=== PATIENT | female | born 1990 | race Caucasian/White ===

== ENCOUNTER 2017-10-01 16:36 | Emergency (ER) | payer MEDICAID ==
--- NOTE | 2017-10-01 17:52 | Emergency Department Record ---
Anxiety - General Chief Complaint: Anxiety Stated Complaint: ANXIETY Time Seen by Provider: 10/01/17 17:42 Source: Patient, RN notes reviewed Mode of Arrival: Ambulatory - History of Present Illness Initial Comments: anxiety disorder and she is been having panic attacks and SOB and she has had a trigger with her family and has been upset. She takes busparone 40 mg in the am and than 10 mg at 11 am and than 10 mg at 2 am and only allowed 60 mg a day and also she takes wellbutyrin 300mg in the am. PSH removal of thyroid and on levothyroidine. Thyroid cancer. 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 MD Complaint: Heart racing Onset/Timin -: Week(s) Symptoms: Chest pain, Palpitations Place: Home, Work Previous History of Same: No Severity: Mild Quality: Constant, Intermittant Provoking factors: Emotional stress, Work/job stress Improves With: Nothing Worsens With: Nothing Associated symptoms: Chest pain - Related Data Home Medications: Previous Rx's Medication Instructions Recorded Ciprofloxacin HCl [Cipro] 500 mg PO Q12HR #20 tablet 10/01/17 Allergies/Adverse Reactions: Allergies Allergy/AdvReac Type Severity Reaction Status Date / Time amoxicillin trihydrate Allergy Intermediate HIVES Unverified 09/18/17 13:59 [From Augmentin] Penicillins Allergy Intermediate HIVES Unverified 09/18/17 13:59 potassium clavulanate Allergy Intermediate HIVES Unverified 09/18/17 13:59 [From Augmentin] latex Allergy rash and Unverified 09/18/17 13:59 redness on hands sulfamethoxazole Allergy upset Unverified 09/18/17 13:59 [From Bactrim] stomach trimethoprim [From Bactrim] Allergy upset Unverified 09/18/17 13:59 stomach Travel Screening - Travel/Exposure Within Last 30 Days Have you traveled within the last 30 days?: No Past Medical History - SOCIAL HISTORY Smoking Status: Current every day smoker Alcohol Use: Rare Drug Use: None - RESPIRATORY Hx Respiratory Disorders: No - CARDIOVASCULAR Hx Cardio Disorders: No - NEURO Hx Neuro Disorders: No - GI Hx GI Disorders: No - Hx Genitourinary Disorders: No - ENDOCRINE Hx Endocrine Disorders: Yes Hx Thyroid Disease: Yes - MUSCULOSKELETAL Hx Musculoskeletal Disorders: Yes Comment:: scoliosis, sciatica - PSYCH Hx Psych Problems: Yes Hx Anxiety: Yes Comment:: bipolar - HEMATOLOGY/ONCOLOGY Hx Hematology/Oncology Disorders: No Family Medical History Any Significant Family History?: Yes Family Hx Comment (NOT TO BE USED IN PLACE OF ITEMS BELOW): mother - MS, thyroid disease Hx Cancer: Grandparents Hx Heart Disease: Father Physical Exam - General General Appearance: Alert, Oriented x3, Cooperative, No acute distress - Head Head exam: Normal inspection - Eye Eye exam: Normal appearance, PERRL Pupils: Normal accommodation - ENT ENT exam: Normal exam, Mucous membranes moist, Normal external ear exam, Normal orophraynx, TM's normal bilaterally Ear exam: Normal external inspection. negative: External canal tenderness Nasal Exam: Normal inspection. negative: Discharge, Sinus tenderness Mouth exam: Normal external inspection, Tongue normal Teeth exam: Normal inspection. negative: Dental caries Throat exam: Normal inspection. negative: Tonsillar erythema, Tonsillar exudate - Neck Neck exam: Normal inspection, Full ROM. negative: Tenderness - Respiratory Respiratory exam: Normal lung sounds bilaterally. negative: Respiratory distress - Cardiovascular Cardiovascular Exam: Regular rate, Normal rhythm, Normal heart sounds - GI/Abdominal GI/Abdominal exam: Soft, Normal bowel sounds. negative: Tenderness - Rectal Rectal exam: Deferred - exam: Deferred - Extremities Extremities exam: Normal inspection, Full ROM, Normal capillary refill. negative: Tenderness - Back Back exam: Reports: Normal inspection, Full ROM. Denies: Muscle spasm, Rash noted, Tenderness - Neurological Neurological exam: Alert, Normal gait, Oriented X3, Reflexes normal - Psychiatric Psychiatric exam: Normal affect, Normal mood - Skin Skin exam: Dry, Intact, Normal color, Warm Course Vital Signs 10/01/17 17:21 Temperature 99.2 F Pulse Rate [ 105 H [employer] ] Respiratory 20 Rate Blood Pressure 113/72 [Left Arm] Pulse Ox 98 Medical Decision Making - Data Complexity MDM Data: Labs Ordered and/or Reviewed, EKG Ordered and/or Reviewed (no acute changes) - Lab Data Result diagrams: 10/01/17 18:00 10/01/17 18:00 Disposition Clinical Impression: Panic attack UTI (urinary tract infection) Qualifiers: Urinary tract infection type: acute cystitis Hematuria presence: without hematuria Qualified Code(s): N30.00 - Acute cystitis without hematuria Disposition: Home, Self-Care Condition: (1) Good Instructions: Social Anxiety Disorder (ED), Urinary Tract Infection in Women ( ED) Additional Instructions: follow up with family DR in 2 to 8 days take addition buspar 10 mg tonight and than back to her daily dose tomorrow Prescriptions: Ciprofloxacin HCl [Cipro] 500 mg PO Q12HR #20 tablet Forms: Patient Portal Access Time of Disposition: 20:02 Quality - Quality Measures Quality Measures: N/A - Blood Pressure Screening Does Patient Have Any of the Following: No Blood Pressure Classification: Normal BP Reading Systolic Measurement: 115 Diastolic Measurement: 75 Screening for High Blood Pressure: < Normal BP, F/U Not Required > [G8783]
[2017-10-01] MEDS ORDERED: ASPIRIN 81 MG CHEWABLE TABLET PO ONE (17:57)
[2017-10-01 18:19] LABS: HEMATOCRIT 35.5 % (35.0-47.0); MEAN CELL VOLUME 89.2 fl (81-97); MEAN CORPUSCULAR HEMOGLOBIN 27.6 pg (27-33); MEAN PLATELET VOLUME 9.3 fl (7.4-10.4); PLATELET COUNT 402 K/uL (130-400); RED BLOOD COUNT 3.98 M/uL (3.80-5.40); RED CELL DISTRIBUTION WIDTH 15.7 % (11.5-14.5); WHITE BLOOD COUNT W/O DIFF 15.6 K/uL (4.2-12.2)
[2017-10-01 18:33] LABS: BLOOD UREA NITROGEN 11 mg/dL (6-20); CREATININE 0.7 mg/dL (0.5-0.9); EST GLOMERULAR FILTRATION RATE > 60 mL/min
[2017-10-01 18:34] LABS: TOTAL PROTEIN 6.9 g/dL (6.6-8.7)
[2017-10-01 18:36] LABS: GLUCOSE,RANDOM 77 mg/dL (74-109)
[2017-10-01 18:38] LABS: ALB/GLOB RATIO 1.5 (1.1-1.8); ALBUMIN 4.1 g/dL (4.0-5.0); ALT/SGPT 65 U/L (<33); AST/SGOT 20 U/L (10.0-35.0)
[2017-10-01 18:39] LABS: ALKALINE PHOSPHATASE 90 U/L (35-104)
[2017-10-01 18:41] LABS: CKMB 2.6 ng/mL (<3.77)
[2017-10-01 18:49] LABS: THYROID STIMULATING HORMONE 2.73 uIU/mL (0.270-4.20)
[2017-10-01 19:40] LABS: URINE APPEARANCE CLEAR; URINE BILIRUBIN SMALL (NEGATIVE); URINE BLOOD NEGATIVE (NEGATIVE); URINE COLOR YELLOW; URINE GLUCOSE (UA) NEGATIVE (NEGATIVE); URINE KETONE NEGATIVE (NEGATIVE); URINE LEUKOCYTE ESTERASE TRACE (NEGATIVE); URINE NITRITE POSITIVE (NEGATIVE); URINE PROTEIN NEGATIVE (NEGATIVE); URINE UROBILINOGEN 0.2 E.U./dL (0.20 - 1.00)
[2017-10-01 19:46] LABS: URINE BACTERIA 1+; URINE RBC 0 - 2 (NONE SEEN)
== END 2017-10-01 20:26 | disposition home or self-care (01) ==
LOC: ER 16:36
DX: N30.00 Acute cystitis without hematuria (principal); R07.9 Chest pain, unspecified; R06.02 Shortness of breath; F43.0 Acute stress reaction; F17.210 Nicotine dependence, cigarettes, uncomplicated
CPT/HCPCS: 80053; 81001; 82553; 84443; 84484; 85027; 85730; 93005; 93010; 99284

== ENCOUNTER 2019-02-19 20:30 | Emergency (ER) | payer MEDICAID ==
[2019-02-19] MEDS ORDERED: CLONIDINE HCL 0.1 MG TABLET PO ONE (21:20)
[2019-02-19] MEDS ORDERED: 0.9 % SODIUM CHLORIDE 1,000 ML BAG IV ONE (21:20)
--- NOTE | 2019-02-19 21:21 | Emergency Department Record ---
Anxiety - General Chief Complaint: Anxiety Stated Complaint: FEEL LIKE BODY GOING NUMB/JERRY Time Seen by Provider: 02/19/19 21:08 Source: Patient Mode of Arrival: Ambulatory - History of Present Illness Initial Comments: The patient states she is here for anxiety. She has a long history of anxiety for which she has been on various medications. The past 2 days she has been getting numbness on and off in her arms, legs, face, her heart has been racing "between 112 and 140 per minute," and she is on and off short of breath with chest tightness. She Is [id number] 2 months ago, and sexually active without control. She is a cigarette smoker, and marijuana less so. Her father of a blood clot to his heart at age 45. She personally has never been worked up for FH of clotting disorder, and she denies PE, DVT. She states she has adverse rections to ativan and xanax, but that clonepin helps with her anxiety. She is in the process of moving out of her home with her two children and getting a divorce after 11 years. She also works at 3 a.m. and feels anxious and exhausted. MD Complaint: Anxiety, Heart racing, Shortness of breath Onset/Timin -: Hour(s) Symptoms: Dyspnea, Extremity numbness/tingling Place: Home Quality: Intermittant, Similar to prior episodes - Related Data Home Medications: Home Medications Medication Instructions Recorded Confirmed Last Taken Clomipramine HCl [Anafranil] 75 mg PO DAILY 02/19/19 02/19/19 Unknown Allergies/Adverse Reactions: Allergies Allergy/AdvReac Type Severity Reaction Status Date / Time amoxicillin trihydrate Allergy Intermediate HIVES Verified 02/19/19 20:45 [From Augmentin] Penicillins Allergy Intermediate HIVES Verified 02/19/19 20:45 potassium clavulanate Allergy Intermediate HIVES Verified 02/19/19 20:45 [From Augmentin] latex Allergy rash and Verified 02/19/19 20:45 redness on hands sulfamethoxazole Allergy upset Verified 02/19/19 20:45 [From Bactrim] stomach trimethoprim [From Bactrim] Allergy upset Verified 02/19/19 20:45 stomach Travel Screening - Travel/Exposure Within Last 30 Days Have you traveled within the last 30 days?: No - Travel Symptoms Symptom Screening: None Review of Systems Reviewed: No additional complaints except as noted below Constitutional: Reports: As per HPI. Denies: Chills, Fever, Malaise, Night sweats, Weakness, Weight change Eyes: Reports: As per HPI. Denies: Eye discharge, Eye pain, Photophobia, Vision change ENT: Reports: As per HPI. Denies: Congestion, Dental pain, Ear pain, Epistaxis, Hearing loss, Throat pain Respiratory: Reports: As per HPI. Denies: Cough, Dyspnea, Hemoptysis, Stridor, Wheezes Cardiovascular: Reports: As per HPI. Denies: Arrhythmia, Chest pain, Dyspnea on exertion, Edema, Murmurs, Orthopnea, Palpitations, Paroxysmal nocturnal dyspnea, Rheumatic Fever, Syncope Endocrine: Reports: As per HPI. Denies: Fatigue, Heat or cold intolerance, Polydipsia, Polyuria Gastrointestinal: Reports: As per HPI. Denies: Abdominal pain, Constipation, Diarrhea, Hematemesis, Hematochezia, Melena, Nausea, Vomiting Genitourinary: Reports: As per HPI. Denies: Abnormal menses, Discharge, Dyspareunia, Dysuria, Frequency, Hematuria, Incontinence, Retention, Urgency Musculoskeletal: Reports: As per HPI. Denies: Arthralgia, Back pain, Gout, Joint swelling, Myalgia, Neck pain Skin: Reports: As per HPI. Denies: Bruising, Change in color, Change in hair/nails, Lesions, Pruritus, Rash Neurological: Reports: As per HPI. Denies: Abnormal gait, Confusion, Headache, Numbness, Paresthesias, Seizure, Tingling, Tremors, Vertigo, Weakness Psychiatric: Reports: As per HPI. Denies: Anxiety, Auditory hallucinations, Depression, Homicidal thoughts, Suicidal thoughts, Visual hallucinations Hematological/Lymphatic: Reports: As per HPI. Denies: Anemia, Blood Clots, Easy bleeding, Easy bruising, Swollen glands Past Medical History - SOCIAL HISTORY Smoking Status: Current every day smoker - RESPIRATORY Hx Respiratory Disorders: No - CARDIOVASCULAR Hx Cardio Disorders: No - NEURO Hx Neuro Disorders: No - GI Hx GI Disorders: No - Hx Genitourinary Disorders: No - ENDOCRINE Hx Endocrine Disorders: Yes Hx Thyroid Disease: Yes - MUSCULOSKELETAL Hx Musculoskeletal Disorders: Yes Comment:: scoliosis, sciatica - PSYCH Hx Psych Problems: Yes Hx Anxiety: Yes Comment:: bipolar - HEMATOLOGY/ONCOLOGY Hx Hematology/Oncology Disorders: No Family Medical History Any Significant Family History?: Yes Family Hx Comment (NOT TO BE USED IN PLACE OF ITEMS BELOW): mother - MS, thyroid disease Hx Cancer: Grandparents Hx Heart Disease: Father Physical Exam - General General Appearance: Alert, Oriented x3, Cooperative, Anxious - Head Head exam: Normal inspection - Eye Eye exam: Normal appearance, PERRL, EOMI. negative: Conjunctival injection, Nystagmus Pupils: Normal accommodation - ENT ENT exam: Normal exam, Mucous membranes moist, Normal external ear exam, Normal orophraynx, TM's normal bilaterally Ear exam: Normal external inspection. negative: External canal tenderness Nasal Exam: Normal inspection. negative: Discharge, Sinus tenderness Mouth exam: Normal external inspection, Tongue normal Teeth exam: Normal inspection. negative: Dental caries Throat exam: Normal inspection. negative: Tonsillar erythema, Tonsillar exudate - Neck Neck exam: Normal inspection, Full ROM. negative: Lymphadenopathy, Meningismus, Tenderness - Respiratory Respiratory exam: Normal lung sounds bilaterally. negative: Accessory muscle use, Prolonged expiratory, Rales, Respiratory distress, Rhonchi, Stridor, Wheezes - Cardiovascular Cardiovascular Exam: Normal rhythm, Normal heart sounds, Tachycardia - GI/Abdominal GI/Abdominal exam: Soft, Normal bowel sounds. negative: Tenderness - Rectal Rectal exam: Deferred - exam: Deferred - Extremities Extremities exam: Normal inspection, Full ROM, Normal capillary refill. negative: Calf tenderness, Pedal edema, Tenderness - Back Back exam: Reports: Normal inspection, Full ROM. Denies: Muscle spasm, Rash noted, Tenderness - Neurological Neurological exam: Alert, CN II-XII intact, Normal gait, Oriented X3, Reflexes normal. negative: Motor sensory deficit - Psychiatric Psychiatric exam: Normal affect, Normal mood - Skin Skin exam: Dry, Intact, Normal color, Warm Course Vital Signs 02/19/19 20:37 Temperature 98.4 F Pulse Rate [ 110 H Left] Respiratory 18 Rate Blood Pressure 131/81 [Left Arm] Pulse Ox 98 - Reevaluation(s) Reevaluation #1: Patient is feeling better after clonidine and a liter of fluid. All symptoms resolved, and all results discussed with patient. She has all her questions answered and will follow up with her PCP to adjust her medications. She declined a work note for tonight. 02/19/19 22:43 02/19/19 22:45 Medical Decision Making - Management Options MDM Management: No Additional Work-up Planned - Data Complexity MDM Data: Labs Ordered and/or Reviewed, EKG Ordered and/or Reviewed - Lab Data Result diagrams: 02/19/19 21:39 02/19/19 21:39 - EKG Data -: EKG Interpreted by Me EKG: No Acute Changes, Normal EKG, Unchanged From Previous Disposition Disposition: Discharge Clinical Impression: Anxiety as acute reaction to exceptional stress Disposition: Home, Self-Care Condition: (1) Good Instructions: Social Anxiety Disorder (ED) Additional Instructions: Home with brother. Continue present medications. PCP follow up next week for medication adjustment. Quality - Quality Measures Quality Measures: N/A - Blood Pressure Screening Does Patient Have Any of the Following: No Blood Pressure Classification: Normal BP Reading Systolic Measurement: 101 Diastolic Measurement: 67 Screening for High Blood Pressure: < Normal BP, F/U Not Required > [G8783]
[2019-02-19 21:49] LABS: BASO % 0.8 % (0-6); GRAN % 67.7 % (47-80); HEMATOCRIT 38.3 % (35.0-47.0); HEMOGLOBIN 12.1 gm/dl (11.6-16.0); LYMPH % 24.9 % (16-45); MEAN CELL VOLUME 92.7 fl (81-97); MEAN CORPUSCULAR HEMOGLOBIN 29.3 pg (27-33); MEAN CORPUSCULAR HGB CONC 31.6 g/dl (32-36); MEAN PLATELET VOLUME 9.7 fl (7.4-10.4); MONO % 5.6 % (0-9); PLATELET COUNT 387 K/uL (130-400); RED BLOOD COUNT 4.13 M/uL (3.80-5.40); RED CELL DISTRIBUTION WIDTH 14.4 % (11.5-14.5); WHITE BLOOD COUNT W/O DIFF 12.4 K/uL (4.2-12.2)
[2019-02-19 21:58] LABS: BLOOD UREA NITROGEN 12 mg/dL (6-20); CREATININE 0.6 mg/dL (0.5-0.9); EST GLOMERULAR FILTRATION RATE > 60 mL/min
[2019-02-19 21:59] LABS: BILIRUBIN,TOTAL < 0.20 mg/dL (0.2-1.0); TOTAL PROTEIN 6.6 g/dL (6.6-8.7)
[2019-02-19 22:01] LABS: GLUCOSE,RANDOM 109 mg/dL (74-109)
[2019-02-19 22:04] LABS: ALB/GLOB RATIO 1.8 (1.1-1.8); ALBUMIN 4.2 g/dL (4.0-5.0); ALKALINE PHOSPHATASE 76 U/L (35-104); ALT/SGPT 16 U/L (<33); AST/SGOT 16 U/L (10.0-35.0)
[2019-02-19 22:05] LABS: INR 1.1; PROTHROMBIN TIME (PATIENT) 10.6 SECONDS (9.5-12.1)
[2019-02-19 22:14] LABS: THYROID STIMULATING HORMONE 4.75 uIU/mL (0.270-4.20)
== END 2019-02-19 23:07 | disposition home or self-care (01) ==
LOC: ER 20:30
DX: F41.1 Generalized anxiety disorder (principal); F43.0 Acute stress reaction; R20.0 Anesthesia of skin; R06.02 Shortness of breath; R07.89 Other chest pain; F17.210 Nicotine dependence, cigarettes, uncomplicated
CPT/HCPCS: 80053; 81025; 84443; 84484; 85025; 85379; 85610; 85730; 93005; 93010; 99284